=== PATIENT | male | born 1990 | race Two or more races ===

== ENCOUNTER 2018-10-17 19:51 | Emergency (ER) | payer MEDICAID ==
[2018-10-17 20:19] VITALS: BP 133/88
[2018-10-17] MEDS ORDERED: SULFAMET/TMP DS PREPACK#2 BTL TAKEHOME ONE (20:31)
--- NOTE | 2018-10-17 20:35 | EDPHY ---
H & P Time Seen by Provider: 10/17/18 20:03 HPI/ROS: CHIEF COMPLAINT: Abscess on arm HPI: 28 year old male with hx of IVDA presents after developing an abscess on the left forearm. Present for about 1 week. No fevers, chills, N or V. Complains of significant pain in the area. PMH: Migraines, IVDA, clean for 1 year until relapse. SH: Here with family; no aware of cause of patients abscess. Nonsmoker. EXAM: GENERAL: VS stable, not tachycardic or febrile. Pleasant, cooperative, reports moderate pain. HEENT: Benign. CHEST: CTA HEART: RRR, no murmur auscultated. ABD: Soft, NTND. EXT: Left Forearm: 5x5cm fluctuant abscess on ulnar aspect of left forearm, just distal to elbow. Moderate surrounding cellulitis, no lymphangitic spread. No drainage. Distal NV intact. Normal pulses. SKIN: No rash PSYCHIATRIC: No agitation Smoking Status: Never smoked Constitutional: Initial Vital Signs Temperature (C) 36.6 C 10/17/18 20:08 Heart Rate 88 10/17/18 20:08 Respiratory Rate 16 10/17/18 20:08 Blood Pressure 133/88 H 10/17/18 20:08 O2 Sat (%) 96 10/17/18 20:08 O2 Delivery Mode Room Air Allergies/Adverse Reactions: No Known Allergies Allergy (Verified 10/17/18 20:07) Home Medications: Medication Instructions Recorded NO HOME MEDS 10/19/13 Sulfamethox/Tmp 800/160 mg 1 tab PO BID #14 tab 10/17/18 [Bactrim Ds] Medical Decision Making Procedures: PROCEDURE: Abscess drainage. The abscess was located on the left ulnar forearm. After consent was obtained and the patient was made aware of risks, including bleeding and infection, the area was anesthetized with lidocaine with epinephrine and bicarbonate. Skin was prepped in usual standard fashion. A #15 blade was used to incise the abscess. Moderate amount of purulent material was drained and sent for culture. Packing was placed. Patient tolerated procedure well. Procedure performed by myself. ED Course/Re-evaluation: Abscess I and D'd. Started on Bactrim. Will removed packing in 24-48 hours. Return if worsening. Differential Diagnosis: Diff dx considered included but not limited to abscess, MRSA, MSSA, cellulitis, retained foreign body, lymphangitis. - Data Points Medications Given: Discontinued Medications Trimethoprim/Sulfamethoxazole (Bactrim Ds Prepack#2) 1 btl RAF ORTIZ ONE Stop: 10/17/18 20:32 Last Admin: 10/17/18 20:41 Dose: 1 btl Departure - Departure Disposition: Home, Routine, Self-Care Clinical Impression: Abscess, Presumed MRSA Condition: Good Instructions: Sulfamethoxazole/Trimethoprim (By mouth), Cellulitis (ED), Abscess (ED) Additional Instructions: The abscess on your arm has been drained. Please keep the packing in place for the next 24-48 hours. After that, you may remove the packing. After you removed the packing, please soak the arm in water 2 to 3 times a day. When you are in the shower, ensure that the water runs over the area of the abscess to trying keep the area draining and to be sure that it heals from the inside out. Please take antibiotic as directed. Bactrim 1 tablet by mouth 2 times a day for 7 days. Watch for worsening and redness, worsening swelling, or increasing pain. Referrals: NONE *PRIMARY CARE P,. [Primary Care Provider] - As per Instructions Prescriptions: Sulfamethox/Tmp 800/160 mg [Bactrim Ds] 1 tab PO BID #14 tab
== END 2018-10-17 20:57 | disposition home or self-care (01) ==
LOC: CED 19:51
PROC: 0H9EXZZ Drainage of Left Lower Arm Skin, External Approach (ICD-10-PCS; principal; 2018-10-17)
DX: L02.414 Cutaneous abscess of left upper limb (principal)
CPT/HCPCS: 99283-ER